=== PATIENT | female | born 1950 | race Caucasian/White ===

== ENCOUNTER 2016-10-25 09:42 | Inpatient (IN) | payer OTHER ==
[~2016-10-25] VITALS: Ht 172.7 cm; Wt 97.3 kg
[~2016-10-25 09:42] MED LIST: ADVIL200 MG PO; ATIVAN0.5 MG PO; ATORVASTATIN CA40 MG PO; ELIQUIS5 MG PO; TOPROL XL25 MG PO; VITAMIN D31000 UNIT PO; VITAMIN D50000 UNI4 PO
[2016-10-25 12:33] VITALS: BP 173/66
[2016-10-25 19:24] VITALS: BP 174/72
[2016-10-25 23:15] VITALS: BP 130/66
[2016-10-26 07:50] LABS: HEMATOCRIT 37.8 % (36.0-46.0); MCH 31.3 PG (29.0-34.0); MCHC 33.9 G/DL (30.0-36.0); MCV 92.4 FL (83-99); MEAN PLAT.VOLUME 10.6 uM^3 (9.5-12.4); PLATELET COUNT 186 K/uL (156-360); RBC DIS.WIDTH-CV 12.6 % (11.8-14.6); RBC DIS.WIDTH-SD 42.5 % (39-53); RED BLOOD COUNT 4.09 M/uL (3.80-5.20)
[2016-10-26 08:00] LABS: WHITE BLOOD COUNT 11.3 K/uL (4.1-10.2)
[2016-10-26 08:15] LABS: ANION GAP 7 MEQ/L (2-14); CHLORIDE 104 MEQ/L (99-109); GFR ESTIMATE (CALCULATED) > 59 mL/min/; POTASSIUM 4.9 MEQ/L (3.7-5.4); SAMPLE HEMOLYSIS CHECK 0; SAMPLE ICTERIC CHECK 0; SAMPLE LIPEMIA CHECK 0; SODIUM 137 MEQ/L (136-147); UREA NITROGEN (BUN) 6 mg/dL (9-23)
[2016-10-26 08:27] LABS: GLUCOSE 177 mg/dL (70-99)
[2016-10-26 09:15] VITALS: BP 143/59
[2016-10-26 11:45] VITALS: BP 124/56
[2016-10-26 16:08] VITALS: BP 142/62
[2016-10-26 19:03] VITALS: BP 143/63
[2016-10-26 23:04] VITALS: BP 138/69
[2016-10-27 02:51] VITALS: BP 153/70
[2016-10-27 06:49] LABS: HEMATOCRIT 36.6 % (36.0-46.0); MCH 31.6 PG (29.0-34.0); MCHC 34.2 G/DL (30.0-36.0); MCV 92.4 FL (83-99); MEAN PLAT.VOLUME 10.6 uM^3 (9.5-12.4); PLATELET COUNT 176 K/uL (156-360); RBC DIS.WIDTH-CV 12.7 % (11.8-14.6); RBC DIS.WIDTH-SD 43.2 % (39-53); RED BLOOD COUNT 3.96 M/uL (3.80-5.20); WHITE BLOOD COUNT 9.5 K/uL (4.1-10.2)
[2016-10-27 08:05] LABS: ANION GAP 8 MEQ/L (2-14); CHLORIDE 100 MEQ/L (99-109); GFR ESTIMATE (CALCULATED) > 59 mL/min/; GLUCOSE 134 mg/dL (70-99); SAMPLE HEMOLYSIS CHECK 0; SAMPLE ICTERIC CHECK 0; SAMPLE LIPEMIA CHECK 0; SODIUM 134 MEQ/L (136-147); UREA NITROGEN (BUN) 5 mg/dL (9-23)
[2016-10-27 08:06] LABS: POTASSIUM 3.9 MEQ/L (3.7-5.4)
[2016-10-27 08:25] VITALS: BP 145/65
[2016-10-27 11:42] VITALS: BP 142/73
[2016-10-27 15:29] VITALS: BP 147/67
[2016-10-27 19:18] VITALS: BP 143/66
[2016-10-27 23:13] VITALS: BP 134/62
[2016-10-28 03:20] VITALS: BP 137/52
[2016-10-28 06:22] LABS: HEMATOCRIT 37.4 % (36.0-46.0); MCH 31.1 PG (29.0-34.0); MCV 91.7 FL (83-99); MEAN PLAT.VOLUME 10.4 uM^3 (9.5-12.4); PLATELET COUNT 179 K/uL (156-360); RBC DIS.WIDTH-CV 12.6 % (11.8-14.6); RBC DIS.WIDTH-SD 42.6 % (39-53); RED BLOOD COUNT 4.08 M/uL (3.80-5.20); WHITE BLOOD COUNT 7.3 K/uL (4.1-10.2)
[2016-10-28 06:32] LABS: CHLORIDE 106 mEq/L (99-109); POTASSIUM 4.1 mEq/L (3.7-5.4); SODIUM 137 mEq/L (136-147)
[2016-10-28 06:34] LABS: GLUCOSE 122 mg/dL (70-99)
[2016-10-28 06:35] LABS: ANION GAP 7 MEQ/L (2-14)
[2016-10-28 06:38] LABS: GFR ESTIMATE (CALCULATED) > 59 mL/min/; UREA NITROGEN (BUN) 5 mg/dL (9-23)
[2016-10-28 07:52] VITALS: BP 135/71
[2016-10-28 11:17] VITALS: BP 130/62
[2016-10-28 16:57] VITALS: BP 136/66
[2016-10-28 20:07] VITALS: BP 122/55
[2016-10-29 00:10] VITALS: BP 124/58
[2016-10-29 03:44] VITALS: BP 148/66
[2016-10-29 06:39] LABS: MCH 30.6 PG (29.0-34.0); MCHC 33.2 G/DL (30.0-36.0); MEAN PLAT.VOLUME 10.5 uM^3 (9.5-12.4); PLATELET COUNT 184 K/uL (156-360); RBC DIS.WIDTH-CV 12.6 % (11.8-14.6); RBC DIS.WIDTH-SD 42.6 % (39-53); RED BLOOD COUNT 4.02 M/uL (3.80-5.20)
[2016-10-29 07:22] LABS: ANION GAP 9 MEQ/L (2-14); CHLORIDE 105 MEQ/L (99-109); GFR ESTIMATE (CALCULATED) > 59 mL/min/; GLUCOSE 105 mg/dL (70-99); POTASSIUM 4.1 MEQ/L (3.7-5.4); SAMPLE HEMOLYSIS CHECK 0; SAMPLE ICTERIC CHECK 0; SAMPLE LIPEMIA CHECK 0; SODIUM 139 MEQ/L (136-147); UREA NITROGEN (BUN) 7 mg/dL (9-23)
[2016-10-29 08:16] VITALS: BP 134/62
[2016-10-29 11:33] VITALS: BP 108/56
[2016-10-29] MEDS ORDERED: OXYCODONE HCL5 MG PO (12:37)
== END 2016-10-29 15:15 | disposition home or self-care (01) | DRG 331 ==
LOC: 2SOUTH → SDC 09:57 → 5EAST 11:31 → 2SOUTH 11:31 → SDC 12:24 → EDSTATUS 12:49 → 2SOUTH 12:51 → 5EAST 19:14
PROVIDERS: Surgery
PROC: 0DTH0ZZ Resection of Cecum, Open Approach (ICD-10-PCS; principal; 2016-10-25)
DX: D12.0 Benign neoplasm of cecum (principal); E78.5 Hyperlipidemia, unspecified; E66.9 Obesity, unspecified; E11.9 Type 2 diabetes mellitus without complications; K57.90 Diverticulosis of intestine, part unspecified, without perforation or abscess without bleeding; F41.9 Anxiety disorder, unspecified; I48.2 Chronic atrial fibrillation; Z88.8 Allergy status to other drugs, medicaments and biological substances; Z68.32 Body mass index [BMI] 32.0-32.9, adult; Z79.01 Long term (current) use of anticoagulants; I10 Essential (primary) hypertension
CPT/HCPCS: 36415; 80048; 85027; 85027 GA; 88307; J0131; J1100; J1170; J1650; J2250; J2405; J2710; J3010; J7120

== ENCOUNTER 2017-02-10 15:20 | Observation (INO) | payer OTHER ==
[~2017-02-10] VITALS: Ht 172.7 cm; Wt 85.5 kg
[~2017-02-10 15:20] MED LIST changes: +OXYCODONE HCL5 MG PO
[2017-02-10] MEDS ORDERED: FISH OIL 1,0001 EAC7 PO (19:28)
[2017-02-10] MEDS ORDERED: [UNRECOGNIZED DRUG - OTHER] PO (19:28)
[2017-02-10 19:38] LABS: HEMATOCRIT 41.9 % (36.0-46.0); MCHC 33.9 G/DL (30.0-36.0); MCV 91.5 FL (83-99); MEAN PLAT.VOLUME 10.2 uM^3 (9.5-12.4); PLATELET COUNT 207 K/uL (156-360); RBC DIS.WIDTH-CV 12.8 % (11.8-14.6); RBC DIS.WIDTH-SD 43.2 % (39-53); RED BLOOD COUNT 4.58 M/uL (3.80-5.20); WHITE BLOOD COUNT 8.8 K/uL (4.1-10.2)
[2017-02-10 19:46] LABS: CHLORIDE 107 mEq/L (99-109); SODIUM 138 mEq/L (136-147)
[2017-02-10 19:48] LABS: GLUCOSE 102 mg/dL (70-99)
[2017-02-10 19:50] LABS: ANION GAP 8 MEQ/L (2-14)
[2017-02-10 19:51] LABS: PROTHROMBIN TIME 10.5 (9.2-11.2); PTT 28.4 (25-32)
[2017-02-10 19:52] LABS: GFR ESTIMATE (CALCULATED) > 59 mL/min/
[2017-02-10 19:53] LABS: UREA NITROGEN (BUN) 18 mg/dL (9-23)
[2017-02-10 22:37] VITALS: BP 138/102
[2017-02-10 23:52] VITALS: BP 146/66
[2017-02-11 03:58] VITALS: BP 123/58
[2017-02-11 06:27] LABS: HEMATOCRIT 37.5 % (36.0-46.0); MCH 31.6 PG (29.0-34.0); MCHC 33.6 G/DL (30.0-36.0); MEAN PLAT.VOLUME 10.4 uM^3 (9.5-12.4); PLATELET COUNT 181 K/uL (156-360); RBC DIS.WIDTH-SD 44.6 % (39-53); RED BLOOD COUNT 3.99 M/uL (3.80-5.20); WHITE BLOOD COUNT 6.6 K/uL (4.1-10.2)
[2017-02-11 06:53] LABS: ALKALINE PHOSPHATASE 51 IU/L (3-129); ANION GAP 4 MEQ/L (2-14); CHLORIDE 109 MEQ/L (99-109); GFR ESTIMATE (CALCULATED) > 59 mL/min/; GLUCOSE 115 mg/dL (70-99); POTASSIUM 4.6 MEQ/L (3.7-5.4); SAMPLE HEMOLYSIS CHECK 0; SAMPLE ICTERIC CHECK 0; SAMPLE LIPEMIA CHECK 0; SODIUM 138 MEQ/L (136-147); TOTAL BILIRUBIN 0.5 MG/DL (0.0-1.0); UREA NITROGEN (BUN) 15 mg/dL (9-23)
[2017-02-11 07:45] VITALS: BP 147/67
[2017-02-11 11:47] VITALS: BP 141/85
[2017-02-11 16:46] VITALS: BP 166/71
[2017-02-11 19:43] VITALS: BP 152/68
[2017-02-11 23:38] VITALS: BP 158/69
[2017-02-12 03:52] VITALS: BP 162/77
[2017-02-12 07:46] VITALS: BP 147/70
[2017-02-12 11:26] VITALS: BP 120/60
== END 2017-02-12 14:21 | disposition home or self-care (01) ==
LOC: EME 15:20 → EDOF 20:23 → 3EAST 20:23
PROVIDERS: Emergency Medicine; Internal Medicine
DX: S52.121A Displaced fracture of head of right radius, initial encounter for closed fracture (principal); S82.65XA Nondisplaced fracture of lateral malleolus of left fibula, initial encounter for closed fracture; W01.0XXA Fall on same level from slipping, tripping and stumbling without subsequent striking against object, initial encounter; Y93.01 Activity, walking, marching and hiking; Y99.9 Unspecified external cause status; I48.0 Paroxysmal atrial fibrillation; F41.9 Anxiety disorder, unspecified; Z79.01 Long term (current) use of anticoagulants; E78.5 Hyperlipidemia, unspecified; E11.9 Type 2 diabetes mellitus without complications; Z87.891 Personal history of nicotine dependence; I10 Essential (primary) hypertension; G89.11 Acute pain due to trauma; R26.2 Difficulty in walking, not elsewhere classified; E78.00 Pure hypercholesterolemia, unspecified; Z88.1 Allergy status to other antibiotic agents
CPT/HCPCS: 71010; 73060; 73070; 73090; 73610; 73630; 80048; 80053; 85027; 85610; 85730; 86900; 86901; 93005; 99281; 99285; G0378; G8978 GP CH; G8979 GP CH; G8980 GP CH; J2270; J7030

== ENCOUNTER 2017-02-22 22:18 | Emergency (ER) | payer OTHER ==
[~2017-02-22] VITALS: Ht 172.7 cm; Wt 84.0 kg
[~2017-02-22 22:18] MED LIST changes: +FISH OIL 1,0001 EAC7 PO; +[UNRECOGNIZED DRUG - OTHER] PO
[2017-02-23 00:29] LABS: HEMATOCRIT 41.1 % (36.0-46.0); MCH 30.8 PG (29.0-34.0); MCHC 33.6 G/DL (30.0-36.0); MCV 91.7 FL (83-99); MEAN PLAT.VOLUME 10.4 uM^3 (9.5-12.4); PLATELET COUNT 235 K/uL (156-360); RBC DIS.WIDTH-CV 12.5 % (11.8-14.6); RBC DIS.WIDTH-SD 41.7 % (39-53); RED BLOOD COUNT 4.48 M/uL (3.80-5.20); WHITE BLOOD COUNT 8.1 K/uL (4.1-10.2)
[2017-02-23 00:39] LABS: CHLORIDE 105 mEq/L (99-109); POTASSIUM 4.7 mEq/L (3.7-5.4); SODIUM 140 mEq/L (136-147)
[2017-02-23 00:41] LABS: GLUCOSE 117 mg/dL (70-99)
[2017-02-23 00:43] LABS: ANION GAP 10 MEQ/L (2-14)
[2017-02-23 00:45] LABS: GFR ESTIMATE (CALCULATED) > 59 mL/min/
[2017-02-23 00:46] LABS: UREA NITROGEN (BUN) 17 mg/dL (9-23)
[2017-02-23 01:57] LABS: PROTHROMBIN TIME 10.3 (9.2-11.2); PTT 27.5 (25-32)
[2017-02-23 01:58] LABS: TOTAL BILIRUBIN 0.5 mg/dL (0.0-1.0)
[2017-02-23 01:59] LABS: ALKALINE PHOSPHATASE 70 IU/L (3-129)
[2017-02-23 02:02] LABS: DIRECT BILIRUBIN 0.1 mg/dL (0.0-0.3)
[2017-02-23 02:08] LABS: TROP-I INTERPRETATION NEGATIVE; TROPONIN-I < 0.01 ng/mL (0.0-0.30)
[2017-02-23 02:44] LABS: ADD MIUA? YES; BILIRUBIN NEGATIVE; BLOOD NEGATIVE; COLOR YELLOW ((YELLOW)); GLUCOSE (STRIP) NEGATIVE; KETONES 5; LEUKOCYTES MODERATE; NITRITE NEGATIVE; PROTEIN (STRIP) NEGATIVE; SPECIFIC GRAVITY 1.009 (1.000-1.030); UROBILINOGEN 0.2 MG/DL (0.2-1.0)
[2017-02-23 02:47] LABS: BACTERIA RARE /HPF; EPITHELIAL CELLS 1+ /HPF; HYALINE CASTS 0-5 /LPF; MUCUS TRACE /LPF; RED BLOOD CELLS 0-5 /HPF (0-5); UCUL ADDED? NO; WHITE BLOOD CELLS 0-5 /HPF (0-5)
[2017-02-23] MEDS ORDERED: MECLIZINE HCL25 MG PO (03:06)
[2017-02-23 04:00] VITALS: BP 171/74
== END 2017-02-23 04:01 | disposition home or self-care (01) ==
LOC: EME 22:18
PROVIDERS: Emergency Medicine
DX: R42 Dizziness and giddiness (principal); I10 Essential (primary) hypertension; E78.5 Hyperlipidemia, unspecified; Z87.891 Personal history of nicotine dependence
CPT/HCPCS: 70450; 71020; 80048; 80076; 81003; 84484; 85027; 85610; 85730; 93005; 99281; 99285; J7030